=== PATIENT | female | born 1945 | race Two or more races ===

== ENCOUNTER 2022-04-05 09:48 | Outpatient (CLI) | payer OTHER | END 2022-04-05 10:08 | disposition home or self-care (01) | LOC: LAB 09:48 | PROVIDERS: ATTEND Internal Medicine Hematology & Oncology | DX: D50.8 Other iron deficiency anemias (principal); K29.40 Chronic atrophic gastritis without bleeding; K90.0 Celiac disease; D59.2 Drug-induced nonautoimmune hemolytic anemia ==

== ENCOUNTER 2022-04-11 07:28 | Outpatient (CLI) | payer OTHER | END 2022-04-11 07:29 | disposition home or self-care (01) | LOC: LAB 07:28 | PROVIDERS: ATTEND Internal Medicine Hematology & Oncology | DX: D50.8 Other iron deficiency anemias (principal); D59.2 Drug-induced nonautoimmune hemolytic anemia; K90.0 Celiac disease; K29.40 Chronic atrophic gastritis without bleeding ==

== ENCOUNTER 2022-06-12 20:28 | Emergency (ER) | payer OTHER ==
[~2022-06-12] VITALS: Ht 170.2 cm; Wt 68.9 kg
[2022-06-12] MEDS ORDERED: ZYRTEC10 MG (20:52)
[2022-06-12] MEDS ORDERED: COZAAR50 MG (20:52)
[2022-06-12] MEDS ORDERED: METFORMIN HCL500 M3 (20:53)
== END 2022-06-12 23:37 | disposition home or self-care (01) ==
LOC: ER 20:28
DX: S30.0XXA Contusion of lower back and pelvis, initial encounter (principal); S70.02XA Contusion of left hip, initial encounter; S70.01XA Contusion of right hip, initial encounter; W18.30XA Fall on same level, unspecified, initial encounter; Y93.89 Activity, other specified; Y92.018 Other place in single-family (private) house as the place of occurrence of the external cause; Y99.9 Unspecified external cause status; E11.9 Type 2 diabetes mellitus without complications; Z79.84 Long term (current) use of oral hypoglycemic drugs; I10 Essential (primary) hypertension

== ENCOUNTER 2024-01-04 10:42 | Outpatient (CLI) | payer OTHER ==
[~2024-01-04 10:42] MED LIST: COZAAR50 MG; METFORMIN HCL500 M3; ZYRTEC10 MG
== END 2024-01-04 10:44 | disposition home or self-care (01) ==
LOC: SONOGRAMA 10:42
PROVIDERS: ATTEND Pathology Anatomic Pathology & Clinical Pathology
DX: D34 Benign neoplasm of thyroid gland (principal); E07.89 Other specified disorders of thyroid; E04.1 Nontoxic single thyroid nodule

== ENCOUNTER 2025-01-06 10:17 | Outpatient (CLI) | payer OTHER ==
[~2025-01-06 10:17] MED LIST changes: +AVASTATIN; +GABAPENTIN; +GLIMEPIRIDE2 MG; +LEVO-T50 MCG; +METROPOLOL; +TRICOR
== END 2025-01-06 10:18 | disposition home or self-care (01) ==
LOC: NUCLEAR 10:17
PROVIDERS: ATTEND Internal Medicine
DX: R42 Dizziness and giddiness (principal); I65.23 Occlusion and stenosis of bilateral carotid arteries